=== PATIENT | male | born 1940 | race Caucasian/White ===

== ENCOUNTER 2019-10-26 05:19 | Inpatient (IN) ==
--- NOTE | 2019-10-21 10:14 | EKG Report ---
Test Performed on : 10/21/2019 10:06:53 AM Test Reason : PAT Blood Pressure : / mmHG Vent. Rate : 068 BPM Atrial Rate : 068 BPM P-R Int : 154 ms QRS Dur : 086 ms QT Int : 372 ms P-R-T Axes : 036 -11 049 degrees QTc Int : 395 ms Sinus rhythm. with occasional premature ventricular complexes. Otherwise normal ECG No previous ECGs available Confirmed by Masha Tao MD ([id number]) on 10/22/2019 12:16:35 PM
[2019-10-21 10:34] LABS: HEMATOCRIT 47.6 % (42.0-52.0); HEMOGLOBIN 15.7 g/dL (14.0-18.0); MCH 31.2 PG (27-31); MCV 94.4 FL (81-99); MPV 9.5 FL (7.4-10.4); RBC 5.04 XMIL (4.7-6.1); RDW 13.2 % (11.5-14.5); WBC 9.35 X1000 (4.8-10.8)
[2019-10-21 12:16] LABS: AGAP 11; BUN 16 mg/dL (8-22); CALCIUM 9.2 mg/dL (8.8-10.2); CHLORIDE 104 mmol/L (98-107); COSMO 282; ESTIMATED GFR > 60; GLUCOSE 93 mg/dL (70-104); POTASSIUM 5.1 mmol/L (3.5-5.1); SODIUM 141 mmol/L (136-145); TCO2 26 mmol/L (25-35)
[2019-10-26] MEDS ORDERED: KEFZOL 1 GM/D5W 2 GM/100 ML IVPB ONE (05:34)
[2019-10-26] MEDS ORDERED: LR 1,000 ML ONE (05:34)
[2019-10-26] MEDS ORDERED: DIPRIVAN 1% ONE (06:31)
[2019-10-26] MEDS ORDERED: PAPAVERINE ONE (06:37)
[2019-10-26] MEDS ORDERED: NITROGLYCERIN 50 MG/D5W 0 MG/0 ML IV.SOLN ONE (06:40)
[2019-10-26] MEDS ORDERED: VERSED ONE (06:40)
[2019-10-26] MEDS ORDERED: SENSORCAINE 0.25%/EPI 1:200,000 ONE (06:43)
[2019-10-26] MEDS ORDERED: HEPARIN ONE ×2 (06:43)
[2019-10-26] MEDS ORDERED: KEFZOL ONE (06:43)
[2019-10-26] MEDS ORDERED: NS 1,000 ML ONE ×2 (06:44→10:38)
[2019-10-26] MEDS ORDERED: XYLOCAINE-MPF 2% ONE (07:21)
[2019-10-26] MEDS ORDERED: QUELICIN (DOSE) ONE (07:21)
[2019-10-26] MEDS ORDERED: ZEMURON ONE ×2 (07:21→07:23)
[2019-10-26] MEDS ORDERED: DECADRON ONE (07:21)
[2019-10-26] MEDS ORDERED: ZOFRAN ONE (07:21)
[2019-10-26] MEDS ORDERED: NEO-SYNEPHRINE ONE (07:22)
[2019-10-26] MEDS ORDERED: HEPARIN (DOSE) ONE (07:47)
[2019-10-26 07:56] LABS: URINE SOURCE CATH
[2019-10-26 08:12] LABS: BILIRUBIN URINE NEGATIVE (NEGATIVE); BLOOD URINE NEGATIVE (NEGATIVE); COLOR YELLOW; GLUCOSE URINE NEGATIVE (NEGATIVE); KETONE URINE NEGATIVE (NEGATIVE); LEUKOCYTES URINE NEGATIVE (NEGATIVE); NITRITE URINE NEGATIVE (NEGATIVE); PROTEIN URINE NEGATIVE (NEGATIVE); SP GRAVITY URINE 1.014; TURBIDITY URINE CLEAR (CLEAR); UROBILINOGEN URINE NORMAL (NORMAL)
[2019-10-26 08:14] LABS: UR EPITHELIAL CELLS <10 /HPF (<10); URINE BACTERIA NEGATIVE /HPF; URINE RBC <10 /HPF (<10); URINE WBC <10 /HPF (<10)
[2019-10-26] MEDS ORDERED: ROBINUL ONE (09:41)
[2019-10-26] MEDS ORDERED: NEOSTIGMINE ONE (09:41)
--- NOTE | 2019-10-26 10:58 | OPERATIVE NOTE ---
PROCEDURE DATE: 10/26/2019 NAME OF PROCEDURE: 1. Endovascular repair infrarenal abdominal aortic aneurysm with repair of bilateral common iliac artery aneurysms with an iliac branch prosthesis on the right side. 2. Coiling of the left internal iliac artery. 3. Left common iliac stent placement. SURGEON: Evin Sotelo MD. STOREPERSON: Dhiraj Marshall RN. PREOPERATIVE DIAGNOSES: 1. A 5.5 cm infrarenal abdominal aortic aneurysm. 2. Bilateral common iliac artery aneurysms. POSTOPERATIVE DIAGNOSES: 1. A 5.5 cm infrarenal abdominal aortic aneurysm. 2. Bilateral common iliac artery aneurysms. DESCRIPTION OF PROCEDURE: Satisfactory general endotracheal anesthesia was achieved. The abdomen, groins and proximal thighs were prepped and draped in a sterile fashion. We began on the left side and made a nikos over the level of the inguinal ligament. We anesthetized the skin with 0.25 Marcaine with epinephrine. We then incised the skin, carried our incision down to the inguinal ligament. We exposed the common femoral artery and surrounded it with an umbilical tape proximally. The branch vessels were surrounded with large vessel loops. We then turned our attention the right side and did exactly the same, exposing the common femoral. This time, the branches were lower and so we simply had to use an umbilical tape proximally and a large vessel loop distally. We gave the patient 9000 units of heparin. We placed a 6-[place] sheath Seldinger technique in the right and one in the left as well. We passed a Glidewire followed by a Berenstein catheter followed by Graciela wires bilaterally. We then introduced a 16-[place] sheath on the right, we switched to a 16-[place] sheath on the right and a 12-[place] sheath on the left. We introduced the 23 x 12 x 16 iliac branch device on the right side. Before we introduced that, we had to pass a 280 Glidewire through the 16-[place] sheath. We passed a snare through the 12-[place] sheath and we snared the 280 cm Glidewire and pulled it down out the left iliac. Then, we attached it to the 23 x 12 x 16 iliac branch device and advanced that into the common iliac region. We then introduced the 12-[place] sheath over the horn. Then we passed a Berenstein catheter and the Glidewire and oriented the Glidewire into the internal iliac. We advanced the Berenstein catheter into the internal iliac. We shot a picture to be certain we were appropriately positioned, which we were, and then switched to an Amplatz wire. After positioning the Amplatz into the internal iliac, we then advanced the sheath over into the internal iliac and we then deployed the iliac branch into the internal iliac. We then opened the rest of the main body of the iliac device into the common and external iliac. We ballooned it then with 10 x 4 balloons, passing the 10 x 4 up the right and then over from the left as well to balloon the branch device. At this point, we then removed the 280 guidewire. We pulled the 12-[place] sheath back into the internal iliac. We passed our Glidewire followed by a Berenstein, followed by a Graciela wire up into the main aorta. We then advanced the main body device 28 x 12 x 18 up into the aorta. We switched to a pigtail on the right and shot a picture, identifying the renals. We then positioned the main body just below the renals and opened it. The gate was oriented to the left side. We then pulled our pigtail down, then passed a Glidewire through the pigtail and encountered the gate, pushed the pigtail up into the main body and twirled it to prove we were inside the device and we were. We then switched back to a Graciela wire. We then advanced the interposition piece which was a 27 x 10 and after measuring the length from gate to gate, we felt that the 27 x 10 was appropriate and we then positioned it between the main body device and the right iliac device and deployed it. We then deployed the rest of the main device going down to the left iliac, shot a retrograde arteriogram. Actually, at this point, we decided to coil the left internal iliac. We pulled the sheath back and passed our Berenstein catheter. Actually, we pulled the 18 sheath back, which we had switched to. We then passed our Glidewire and it went right into the internal iliac. We advanced the Berenstein catheter over it and then obtained the coils. We did document position in the internal iliac with contrast and we placed 3 coils, a 6 x 17 times 2 and then an 8 x 24 detachable coils and these satisfactorily fill the internal iliac. So after the coiling had been done, that is when we went ahead and opened the rest of the device, the main body device into the left common iliac. We felt it was not quite long enough, so we added a 12 x 7 piece to extend on into the external iliac. We went up and ballooned the aortic neck with a Reliant balloon, used a 14 x 4 in the Reliant to balloon the gate at the bifurcation and then on down into the left iliac. The right iliac had already been ballooned after the iliac branch device had been placed. We then placed our pigtail and shot a completion aortogram. There was some narrowing in the left common iliac which was a bit unusual despite us having ballooned it with a 14 x 4 balloon, so we felt that it would benefit to go ahead and put a covered atrium stent in the left common iliac, which we did, and it was a 10 x 38 atrium stent. Then we shot a retrograde arteriogram from the left and this showed complete resolution of that stenosis. I am not sure why that had occurred except just maybe there was not enough room for the bifurcation in the [place] aortic lumen and proximal common iliac lumens. But this resolved it. We did see any other leak. The left internal iliac was occluded with the coils and the right internal iliac was open with the branch device. So, we removed our devices and sheaths, closed both common femorals with 5-0 Prolene stitch, closed the subcutaneous tissue with interrupted 3-0 Polysorb as well as 2- 0 Polysorb running, once again used 0.25 Marcaine with epinephrine in the subcutaneous tissue and then closed the skin of each incision with 4-0 Polysorb subcuticular stitches. Telfa and sterile OpSites were applied. He tolerated it well. 153 mL of contrast was used. About 50 mL of blood loss was present. He was sent to the recovery room in stable condition. cc: Evin Sotelo MD
[2019-10-26] MEDS ORDERED: DILAUDID ONE (11:03)
[2019-10-26] MEDS ORDERED: NORCO-10 PO PRN (15:43)
[2019-10-26] MEDS ORDERED: DILAUDID IV PRN (15:43)
[2019-10-26] MEDS: NS 1,000 ML IV SCH (16:06)
[2019-10-26] MEDS: KEFZOL 1 GM/D5W 1 GM/50 ML IVPB IV SCH ×2 (16:26→23:26)
--- NOTE | 2019-10-26 19:58 | GENERAL SURGERY PROGRESS NOTE ---
DATE: 10/26/2019 SUBJECTIVE: It is 4:20 p.m. He is comfortable. OBJECTIVE: His heart rate is 97. Blood pressure 139/65. He has palpable pedal pulses. Bandage is dry. He has no complaints. PLAN: We will check his labs in the morning. He can have liquids and hopefully we can move him to a regular room tomorrow. cc: Evin Sotelo MD
[2019-10-26] MEDS ORDERED: PATIENT'S OWN MED PO ONE (20:00)
[2019-10-26] MEDS: LIPITOR PO SCH (21:10)
[2019-10-26] MEDS: COENZYME Q10 PO SCH (21:10)
[2019-10-26] MEDS: COREG PO SCH (21:10)
[2019-10-26] MEDS: BIOTIN PO SCH (21:11)
[2019-10-26] MEDS: ASPIRIN PO SCH (21:11)
[2019-10-26] MEDS: VITAMIN D PO SCH (21:11)
[2019-10-27] MEDS: NS 1,000 ML IV SCH ×3 (01:25→14:47)
[2019-10-27 05:47] LABS: BASO# 0.01 X1000 (0.0-0.2); BASO% 0.1 % (0.0-0.8); EOS# 0.04 X1000 (0.0-0.7); EOS% 0.3 % (0.0-10.0); HEMATOCRIT 43.3 % (42.0-52.0); HEMOGLOBIN 14.5 g/dL (14.0-18.0); IMM GRAN# 0.02 X1000 (0.0-0.04); IMM GRAN% 0.1 % (0.0-0.5); LYMPH# 1.84 X1000 (1.2-3.4); LYMPH% 13.1 % (20.5-51.1); MCH 31.5 PG (27-31); MCHC 33.5 g/dL (33-37); MCV 94.1 FL (81-99); MONO# 1.77 X1000 (0.11-0.59); MONO% 12.6 % (1.7-9.3); MPV 10.3 FL (7.4-10.4); NEUT% 73.8 % (42.2-75.2); PLT 178 X1000 (130-400); RDW 12.8 % (11.5-14.5); WBC 14.08 X1000 (4.8-10.8)
[2019-10-27 06:21] LABS: AGAP 13; BUN 12 mg/dL (8-22); CALCIUM 8.5 mg/dL (8.8-10.2); CHLORIDE 106 mmol/L (98-107); COSMO 283; CREATININE 0.7 mg/dL (0.7-1.2); ESTIMATED GFR > 60; GLUCOSE 96 mg/dL (70-104); POTASSIUM 4.2 mmol/L (3.5-5.1); SODIUM 142 mmol/L (136-145); TCO2 23 mmol/L (25-35)
[2019-10-27] MEDS: COREG PO SCH ×3 (08:24→22:25)
--- NOTE | 2019-10-27 10:33 | GENERAL SURGERY PROGRESS NOTE ---
DATE: 10/27/2019 SUBJECTIVE: He is postop day 1 after endovascular aneurysm repair. OBJECTIVE: He is afebrile, heart rate 62, blood pressure 136/61. He said he rested okay during the night. He denies any nausea. Lungs sound clear. Abdomen is soft and nontender. Both extremities are warm. LABORATORY DATA: White count is 14,000, hemoglobin 14.5, hematocrit 43, BUN 12, creatinine 0.7. PLAN: The plan is to remove his arterial line, remove his Torres, advance his diet and transfer him out of the unit today. cc: Evin Sotelo MD
[2019-10-27] MEDS: VITAMIN D PO SCH (20:33)
[2019-10-27] MEDS: ASPIRIN PO SCH (20:33)
[2019-10-27] MEDS: COENZYME Q10 PO SCH (20:33)
[2019-10-27] MEDS: BIOTIN PO SCH (20:33)
[2019-10-27] MEDS: LIPITOR PO SCH ×2 (22:10→22:24)
[2019-10-27] MEDS: NON-FORMULARY MED PO SCH ×2 (22:10→22:25)
[2019-10-28] MEDS: NS 1,000 ML IV SCH (06:42)
[2019-10-28] MEDS: COREG PO SCH (08:01)
--- NOTE | 2019-10-28 09:11 | GENERAL SURGERY PROGRESS NOTE ---
DATE: 10/28/2019 He is postop day 2 after endovascular aneurysm repair with coiling of the left internal iliac. He is afebrile. Heart rate is 96, blood pressure 126/73. He is eating solid food. His wounds are fine. Feet are warm. PLAN: The plan will be to discharge him home today. We discussed his activity, his wound care, and he will return to see me in the office in a week. cc: Evin Sotelo MD
--- NOTE | 2019-10-29 21:50 | DISCHARGE SUMMARY ---
ADMISSION DATE: 10/26/2019 DISCHARGE DATE: 10/28/2019 PRIMARY DISCHARGE DIAGNOSIS: Greater than 5 cm infrarenal abdominal aortic aneurysm, bilateral common iliac artery aneurysms. PRIMARY PROCEDURE: Was an endovascular repair of the abdominal and bilateral common iliac aneurysms using a Len[place] excluder graft and an iliac branch prosthesis on the right side. We did coil his left internal iliac. Postoperatively, he was kept in the intensive care unit the first night. He did well, was planned to transfer out the next morning. His arterial line was removed. His Torres catheter was removed. He was placed up in a chair. He did well with that. We advanced his diet. By the next day, the , it was felt he could be discharged home. He was afebrile with stable hemodynamics. We discussed wound care and he will return to the office in a week. cc: MD Asad Perea MD
== END 2019-10-28 09:40 | disposition home or self-care (01) | DRG 269 ==
LOC: SURHOLD 05:19 → ICU 15:25
PROVIDERS: ADMIT Surgery; ATTEND Surgery